=== PATIENT | female | born 1995 | race Asian ===

== ENCOUNTER 2021-10-22 10:38 | Emergency (ER) | payer OTHER ==
[2021-10-22] MEDS ORDERED: BACLOFEN 10MG T10 MG PO (13:11)
[2021-10-22] MEDS ORDERED: NAPROXEN500 MG PO (13:11)
== END 2021-10-22 13:29 | disposition home or self-care (01) ==
LOC: FER 10:38
DX: M54.2 Cervicalgia (principal); M25.512 Pain in left shoulder; M25.511 Pain in right shoulder; Z28.310 Unvaccinated for COVID-19; V49.40XA Driver injured in collision with unspecified motor vehicles in traffic accident, initial encounter
CPT/HCPCS: 72050